=== PATIENT | male | born 1995 | race Caucasian/White ===

== ENCOUNTER 2018-07-23 03:55 | Emergency (ER) | payer SELFPAY ==
[~2018-07-23] VITALS: Ht 180.3 cm; Wt 74.8 kg
[2018-07-23 03:57] VITALS: BP 100/56
--- NOTE | 2018-07-23 03:58 | NUR ---
PT BIB [place] [employer] FOR PREBOOK DUE TO HEP C. PT STATES CRAMPING IN HAMSTRINGS WITH PAIN AT 2/10. PT ADMITS TO USING 1G IV METH USE YESTERDAY AND DRINKING 34 BEERS TODAYS. NO OTHER COMPLAINTS. AAOX4, COOPERATIVE, STEADY GAIT, SPEECH CLEAR. VSS. ER TO SEE PT. MEDHX: HEP C
--- NOTE | 2018-07-23 04:10 | NUR ---
Patient discharged with v/s stable. Written and verbal after care instructions given and explained. Patient verbalized understanding. Police with in custody. All questions addressed prior to discharge. Advised to follow up with PMD.
== END 2018-07-23 04:10 ==
LOC: MED 03:55
DX: F15.10 Other stimulant abuse, uncomplicated (principal); M79.10 Myalgia, unspecified site; Z88.8 Allergy status to other drugs, medicaments and biological substances
CPT/HCPCS: 99283

== ENCOUNTER 2019-04-06 07:10 | Inpatient (IN) | payer MEDICAID ==
--- NOTE | 2019-04-05 20:10 | NUR ---
Admitted from ED , with chief complaint of PER PT, "I FELT LIKE I'M HAVING AN ALLERGIC REACTION FROM A DRUG." PT IS 24 y/o Male, Appropriate, appears comfortable sitting on the edge of the bed. Initial assessment done. Vital signs checked. Pt denies any pain or suicidal ideation right now. Pt oriented to bed, bathroom, visiting hours, procedures, ID bracelet on. Pt's belongings was taken on the safe by Security for safety keeping. Pt refused his IVF and said "I don't want to be connected to anything, unless its a life and situation." Will notify MD. Pt denies any other needs. Addendum: 04/06/19 at 2327 by Katerina Irwin RN Correction: Notes for 04/06/2019 Addendum: 04/07/19 at 0553 by Katerina Irwin RN NOTES FOR 04/06/192009.
[~2019-04-06] VITALS: Ht 180.3 cm; Wt 72.6 kg
--- NOTE | 2019-04-06 07:10 | NUR ---
Patient BIBA BLS, transferred to bed 5. RN evaluating patient at bedside.
[2019-04-06 07:21] VITALS: BP 103/57
--- NOTE | 2019-04-06 07:26 | NUR ---
Dr. Evans is evaluating the patient at bedside.
[2019-04-06] MEDS ORDERED: LORazepam 1 MG TAB PO ONE ×2 (07:30→11:45)
[2019-04-06] MEDS ORDERED: risperiDONE 1 MG TAB PO SCH (07:30)
--- NOTE | 2019-04-06 07:47 | NUR ---
PATIENT BROUGHT TO ED BY EMS VIA GURNEY C/O SUICIDAL IDEATION. PT ADMITS TO REGULAR METH USE BUT DENIES ALCOHOL INTAKE. PT ADMITS TO DEPRESSION AND NON-COMPLIANCE TO PSYCH MEDS. DENIES N/V/D; SKIN IS PINK/WARM/DRY; AAOX4 WITH EVEN AND STEADY GAIT; PERRL 4MM; LUNGS CLEAR BL; HR EVEN AND REGULAR; PT DENIES ANY FEVER, CP, SOB, OR COUGH AT THIS TIME; PATIENT STATES PAIN OF 0/10 AT THIS TIME; VSS; PATIENT POSITIONED FOR COMFORT; HOB ELEVATED; BEDRAILS UP X2; BED DOWN. PATIENT IS ANXIOUS AND SHOWING BEHAVIOR OF PARANOIA. PT OBSERVED TO BE LOOKING AROUND THE ROOM, AND ASKING WHO CAN COME INSIDE THE ER. PT HAS ASKED TO GO TO THE RESTROOM REPEATEDLY. VERBALIZED INTENTION TO HURT SELF. ER MD SAW PATIENT. PMH: HEP C MEDS: RISPERIDONE ALLERGIES: NONE
--- NOTE | 2019-04-06 07:50 | NUR ---
CALL TO [facility] , WAS TOLD OFFICER WAS ENROUTE TO WRITE [id number].
--- NOTE | 2019-04-06 07:53 | NUR ---
SECURITY WAS CALLED TO OBSERVE PATIENT.
[2019-04-06] MEDS ORDERED: ONDANSETRON 4 MG ODT PO ONE (07:55)
[2019-04-06 08:11] LABS: APPEARANCE,URINE CLEAR (CLEAR); BILIRUBIN,URINE NEGATIVE (NEGATIVE); BLOOD, URINE NEGATIVE (NEGATIVE); COLOR,URINE ORANGE (YELLOW); LEUKOCYTE ESTERASE ,URINE NEGATIVE (NEGATIVE); NITRITE, URINE NEGATIVE (NEGATIVE); PH,URINE 7.5 (5.0-9.0); UGLUCOSE NEGATIVE (NEGATIVE)
--- NOTE | 2019-04-06 08:15 | NUR ---
PT CURRENTLY NOT ON HOLD
[2019-04-06 08:20] LABS: RBC,URINE 0-5 /HPF (0-5); WBC,URINE 0-5 /HPF (0-5)
[2019-04-06 08:21] LABS: CARBON DIOXIDE 28.6 mmol/L (21-32); CHLORIDE 103 mmol/L (98-107); CREATININE 0.8 mg/dL (0.7-1.3); GFR ARICAN-AMERICAN 151 mL/min (>90); GLUCOSE 112 mg/dL (74-106); POTASSIUM 3.6 mmol/L (3.5-5.1); SODIUM SERUM 141 mmol/L (136-145); UREA NITROGEN, BLOOD 10 mg/dL (7-18)
[2019-04-06 08:22] LABS: BASOPHILS % (AUTO) 0.4 % (0.0-2.0); EOSINOPHILS % (AUTO) 0.3 % (0.0-4.0); HEMOGLOBIN 14.5 g/dL (12.0-18.0); LYMPHOCYTES # (AUTO) 1.9 K/uL (2.0-11.5); LYMPHOCYTES % (AUTO) 24.4 % (20.5-51.1); MEAN CORPUSCULAR HEMOGLOBIN 32 pg (27-31); MEAN CORPUSCULAR HGB CONC 34 g/dL (33-37); MEAN CORPUSCULAR VOLUME 94.2 fL (80-94); MONOCYTES # (AUTO) 0.6 K/uL (0.8-1.0); MONOCYTES % (AUTO) 7.2 % (1.7-9.3); NEUTROPHILS # (AUTO) 5.2 K/uL (1.8-7.7); NEUTROPHILS % (AUTO) 67.7 % (42.2-75.2); PLATELET COUNT (AUTO) 326 K/uL (140-450); RED BLOOD CELL COUNT(AUTO) 4.57 MIL/uL (4.20-6.10); WHITE BLOOD COUNT (AUTO) 7.7 K/uL (4.8-10.8)
[2019-04-06 08:26] LABS: BARBITURATE, URINE NEG. ng/ml (NEG <=200); BENZODIAZEPINE, URINE NEG. ng/mL (NEG <=200); CANNABINOID, URINE POS. ng/mL (NEG <=50); COCAINE, URINE NEG. ng/mL (NEG <=300); OPIATE, URINE NEG. ng/mL (NEG <=2000); PHENCYCLIDINE SCREEN,URINE NEG. ng/mL (NEG <=25)
[2019-04-06 08:30] LABS: ACETAMINOPHEN < 0.5 ug/ml (10-30); ALBUMIN 4.2 g/dL (3.4-5.0); ASPARTATE AMINOTRANSFERASE 68 U/L (15-37); SALICYLATE < 2.8 mg/dL (2.8-20.0); TOTAL BILIRUBIN 0.8 mg/dL (0.0-1.0)
--- NOTE | 2019-04-06 08:52 | NUR ---
PD AT BEDSIDE SPEAKING WITH PATIENT.
--- NOTE | 2019-04-06 09:07 | NUR ---
PT PLACED ON 5150 HOLD BY OFFICER CHRISTOPHER MARTIN [facility]
--- NOTE | 2019-04-06 10:20 | NUR ---
PT IS CALM, RESTING IN BED COMFORTABLY. PT WITH 1 ON 1 SITTERAMBAR.
--- NOTE | 2019-04-06 10:47 | NUR ---
[facility] has received referral and has faxed to the following facilities for review: [facility], [facility], [facility], [facility], [place], [facility], [facility], [facility], [facility].
--- NOTE | 2019-04-06 11:32 | NUR ---
WENT OVER BELONGINGS WITH SECURITY. BELONGINGS INCLUDE: 1 PAIR SHORTS BLACK LIGHT JACKET HIGH TOP SHOES BLACK CELLPHONE BLACK EYEGLASSES (NO RX) SHAVING RAZOR SILVER POCKET KNIFE WHITE SOCKS
--- NOTE | 2019-04-06 11:34 | NUR ---
PT SITTING UP IN BED WITH 1 ON 1 SITTERCHARY
--- NOTE | 2019-04-06 13:43 | NUR ---
PT SITTING AT EDGE OF BED, DRAWING, AAOX4, BONNIE SIMS RN CURRENTLY SITTING 1-1 WITH PATIENT.
--- NOTE | 2019-04-06 13:44 | NUR ---
PT COLORING ON BEDSIDE. NOTED WITH IMPROVED AFFECT.
--- NOTE | 2019-04-06 16:01 | NUR ---
PT SITTING IN BED, COLORING, EMT TIFFANIE SITTING 1-1. PT AAOX4, COOPERATIVE, VSS, DENIES PAIN AT THIS TIME. PT UNABLE TO PROVIDE DOSAGE OF HOME MEDICATIONS.
[2019-04-06] MEDS ORDERED: NACL 0.9% 1,000 ML IV SCH (17:08)
[2019-04-06] MEDS ORDERED: HYDROcodone/APAP 7.5/325 MG 1 TAB PO PRN (17:10)
[2019-04-06] MEDS ORDERED: ACETAMINOPHEN 325 MG TAB PO PRN (17:10)
[2019-04-06] MEDS ORDERED: ONDANSETRON 4 MG/2 ML VIAL IM/IVP PRN (17:10)
[2019-04-06] MEDS ORDERED: DOCUSATE SODIUM 100 MG GELCAP PO PRN (17:10)
[2019-04-06] MEDS ORDERED: MORPHINE SULFATE 2 MG/ML SYR IVP PRN (17:10)
--- NOTE | 2019-04-06 17:23 | NUR ---
PATIENT READY FOR ADMISSION. WAITING FOR BED IN MS.
--- NOTE | 2019-04-06 18:03 | NUR ---
Patient will be admitted to care of DR TAYLOR. Admited to MS. Will go to room 109B. Belongings list completed. Report to BRUCE FRANCIS.
--- NOTE | 2019-04-06 18:11 | NUR ---
PT ARRIVED ON THE UNIT PT APPEARS STABLE AND IN NO APPARENT DISTRESS. RECEIVED REPORT FROM LAND LEASES AND RENTALS MANAGER, PT AMBULATING THROUGHOUT THE ROOM SITTER AT BEDSIDE. REVIEWED 5150 ROOM ALL SAFETY MEASURES ARE IN PLACE ORIENTED PT TO ROOM AND TO UNIT. OBTAINED MRSA NARES SWAB RECEIVED ADMISSION VITALS WILL ENDORSED ADMISSION PAPERWORK TO PM RN
[2019-04-06 19:11] LABS: PHOSPHORUS 4.5 mg/dL (2.5-4.9)
--- NOTE | 2019-04-06 19:21 | NUR ---
[facility] has received report from day shift and will continue to follow up with contracted [facility] facilities regarding bed placement.
--- NOTE | 2019-04-06 19:32 | NUR ---
ENDORSED PT TO PM RN ENDORSED ADMISSION FORMS TO PM RN . PT AWAKE IN BED ALL SAFETY MEASURES IN PLACE SITTER AT BEDSIDE. Addendum: 04/06/19 at 1935 by Sonia Mann RN IV PRIMED AND SET UP IV OUTSIDE OF PT ROOM PT 5150 FOR S.I. WILL ENDORSE PT TO MONITOR IVF AND TUBING
[2019-04-06 20:10] VITALS: BP 115/74
[2019-04-06] MEDS ORDERED: LORazepam 1 MG TAB PO PRN (20:35)
--- NOTE | 2019-04-06 22:10 | NUR ---
SEEN PT AWAKE DOING SKETCHES. SITTER AT BEDSIDE. PT DENIES ANY NEEDS.
--- NOTE | 2019-04-07 00:55 | NUR ---
SEEN PT GETTING READY FOR BED BUT WENT TO THE BATHROOM FIRST.
--- NOTE | 2019-04-07 01:04 | NUR ---
Calls were made to contracted [facility] facilities regarding bed placement, currently no beds available at this time. [facility], spoke with Jamaal. [facility], spoke with Christin. [facility], spoke with Jason. [facility], spoke with Estefania. [facility], spoke with Ania. [facility], spoke with Ginger. [facility], spoke with Elisabeth.
--- NOTE | 2019-04-07 02:35 | NUR ---
SEEN PT SLEEPING SOUNDLY IN BED. PT REMAINS ON 5150 HOLD. SITTER AT BEDSIDE.
[2019-04-07 04:50] VITALS: BP 101/64
--- NOTE | 2019-04-07 04:50 | NUR ---
SEEN PT AWAKE SITTING ON THE EDGE OF BED, DOING SKETCHES. VITAL SIGNS CHECKED. PT DENIES ANY DISCOMFORT. IV ACCESS CLEAN,DRY AND INTACT.
--- NOTE | 2019-04-07 06:20 | NUR ---
SEEN PT AWAKE WALKING AROUND HIS ROOM. SITTER AT BEDSIDE.
--- NOTE | 2019-04-07 07:08 | NUR ---
PT REPORT GIVEN TO DAYSHIFT NURSE FOR CONTINUITY OF CARE.
--- NOTE | 2019-04-07 07:09 | NUR ---
RECEIVED REPORT FROM REFUELING RAMPMAN NURSE CANDIE FOR CONTINUITY OF CARE. RESPIRATIONS EVEN AND UNLABORED, ROOM AIR. IV INTACT AND PATENT. SAFETY MEASURES IN PLACE. BED IN LOW POSITION. SITTER 1:1 AT BEDSIDE. WILL CONTINUE TO MONITOR.
[2019-04-07 08:09] LABS: HEPATITIS A ANTIBODY IGM Negative (Negative); HEPATITIS B CORE AB TOTAL Negative (Negative); HEPATITIS B SURFACE ANTIBODY Reactive (.); HEPATITIS B SURFACE ANTIGEN Negative (Negative)
--- NOTE | 2019-04-07 08:16 | NUR ---
PATIENT HAS BEEN SCREENED AND CATEGORIZED LOW NUTRITION RISK. PATIENT WILL BE SEEN WITHIN 7 DAYS OF ADMISSION. 04/13/[address]
--- NOTE | 2019-04-07 09:37 | NUR ---
GAVE ANXIETY MEDICATIONS AT THIS TIME. PT TOLERATED WELL. BED IN LOW POSITION. SITTER 1:1 AT BEDSIDE. WILL CONTINUE TO MONITOR.
[2019-04-07] MEDS ORDERED: OLANZapine 5 MG TAB PO SCH (11:00)
--- NOTE | 2019-04-07 11:33 | NUR ---
PT SITTING IN CHAIR NEXT TO DOOR IN STABLE CONDITION. 1:1 SITTER AT SIDE. WILL CONTINUE TO MONITOR.
--- NOTE | 2019-04-07 13:01 | NUR ---
PT EATING AT THIS TIME. 1:1 SITTER AT BEDSIDE. BED IN LOW POSITION. WILL CONTINUE TO MONITOR.
--- NOTE | 2019-04-07 15:44 | NUR ---
Graphics Production Specialist Note: I went to patient's room twice today to conduct assessment both times patient was sleeping, did not wake up when I called his name. Per sitter, patient has been hallucinating and has been restless. I requested sitter to please contact me once patient wakes up.
--- NOTE | 2019-04-07 15:55 | NUR ---
PT LYING IN BED SLEEP AT THIS TIME. 1:1 SITTER AT BEDSIDE. BED IN LOW POSITION. WILL CONTINUE TO MONITOR.
[2019-04-07 16:00] VITALS: BP 116/79
--- NOTE | 2019-04-07 16:10 | NUR ---
SPOKE WITH CHANCE FROM [facility] . PT IS ACCEPTED AND BED IS AVAILABLE, DR. SEXTON IS AWARE.
[2019-04-07] MEDS ORDERED: OLAN5ODT9 PO (16:33)
--- NOTE | 2019-04-07 19:23 | NUR ---
GAVE DISCHARGE INSTRUCTIONS PT VERBALIZED UNDERSTANDING. GAVE TRANSPORT INSTRUCTIONS TO TRANSPORT TEAM, ALL QUESTIONS ANSWERED AT THIS TIME. PT PLACED ON GURNEY IN STABLE CONDITION.
[2019-04-07] MEDS ORDERED: OLANZapine 5 MG ODT PO SCH (21:00)
== END 2019-04-07 19:28 | DRG 776 ==
LOC: MED 07:10 → MTU 17:11
PROVIDERS: ADMIT General Practice; ATTEND General Practice
DX: F19.99 Other psychoactive substance use, unspecified with unspecified psychoactive substance-induced disorder (principal); R65.10 Systemic inflammatory response syndrome (SIRS) of non-infectious origin without acute organ dysfunction; F12.90 Cannabis use, unspecified, uncomplicated; F15.90 Other stimulant use, unspecified, uncomplicated; F31.9 Bipolar disorder, unspecified; Z88.8 Allergy status to other drugs, medicaments and biological substances; Z86.19 Personal history of other infectious and parasitic diseases; Z83.3 Family history of diabetes mellitus
CPT/HCPCS: 36415; 71045; 80053; 80305; 81001; 82550; 83735; 84100; 84443; 85025; 86704; 86706; 86708; 86709; 86803; 87081; 87340; 93005; 99285; G0480; G0482; J7030; Q0092; Q0162

== ENCOUNTER 2019-11-02 20:52 | Emergency (ER) | payer SELFPAY ==
[~2019-11-02] VITALS: Ht 177.8 cm; Wt 68.0 kg
[~2019-11-02 20:52] MED LIST: OLAN5ODT9 PO
[2019-11-02 20:56] VITALS: BP 130/73
== END 2019-11-02 21:01 | disposition left against medical advice (07) ==
LOC: MED 20:52
DX: F15.10 Other stimulant abuse, uncomplicated (principal); Z88.8 Allergy status to other drugs, medicaments and biological substances; Z79.899 Other long term (current) drug therapy; Z53.21 Procedure and treatment not carried out due to patient leaving prior to being seen by health care provider

== ENCOUNTER 2021-07-04 17:34 | Emergency (ER) | payer OTHER ==
[~2021-07-04] VITALS: Ht 167.6 cm; Wt 60.8 kg
--- NOTE | 2021-07-04 17:38 | NUR ---
PT BIBA TAKEN TO ER BED 9.
--- NOTE | 2021-07-04 17:45 | NUR ---
26 y/o [place] [facility] c/o chest pain s/p smoking meth x 1 hour prior to arrival. Patient A&Ox4, ambulatory, states 10, pressure/intermittent, non-radiating chest pressure. EMS reports patient presented tachycardia in 170's. EMS administered 150mL NS with HR ~160's. Pt states smoking meth in the past but chest pain did not feel this bad. Reports auditory hallucinations but denies intention to harm self/others. 18G IV established to AC by EMS prior to arrival. Pt placed onto vehicle monitor technician. Bed locked in lowest position, side rails x 2. PMH/Meds: Paxil A: haldol
[2021-07-04] MEDS ORDERED: LORazepam 2 MG/ML VIAL ONE (17:49)
[2021-07-04] MEDS ORDERED: LORazepam 2 MG/ML VIAL IVP ONE ×3 (17:50→18:35)
[2021-07-04] MEDS ORDERED: NACL 0.9% 1,000 ML IV ONE ×3 (17:50→22:20)
--- NOTE | 2021-07-04 17:50 | NUR ---
Dr. Recio is evaluating patient at bedside
[2021-07-04 17:57] VITALS: BP 120/65
--- NOTE | 2021-07-04 18:10 | NUR ---
PT REMOVED IV WHILE ATTEMPTING TO URINATE. BLEEDING CONTROLLED BY 2X2 GAUZE AND TAPE APPLIED.
--- NOTE | 2021-07-04 18:30 | NUR ---
Dr. Recio at bedside advised of patient agitation; HR 166. Orders to be placed.
[2021-07-04 19:18] LABS: BASOPHILS % (AUTO) 0.5 % (0.0-2.0); EOSINOPHILS % (AUTO) 0.1 % (0.0-4.0); HEMATOCRIT 50.3 % (36-52); LYMPHOCYTES # (AUTO) 1.8 K/uL (2.0-11.5); LYMPHOCYTES % (AUTO) 17.7 % (20.5-51.1); MEAN CORPUSCULAR HEMOGLOBIN 32 pg (27-31); MEAN CORPUSCULAR HGB CONC 34 g/dL (33-37); MEAN CORPUSCULAR VOLUME 93.8 fL (80-94); MONOCYTES # (AUTO) 0.4 K/uL (0.8-1.0); MONOCYTES % (AUTO) 3.7 % (1.7-9.3); NEUTROPHILS # (AUTO) 7.7 K/uL (1.8-7.7); PLATELET COUNT (AUTO) 346 K/uL (140-450); RED BLOOD CELL COUNT(AUTO) 5.37 MIL/uL (4.20-6.10); RED CELL DISTRIBUTION WIDTH 13.4 % (11.6-13.7); WHITE BLOOD COUNT (AUTO) 9.9 K/uL (4.8-10.8)
--- NOTE | 2021-07-04 19:19 | NUR ---
PT REPORT RECEIVED FROM BRUCE CLEARY FOR CONTINUITY OF PT CARE AT THIS TIME,.
[2021-07-04] MEDS ORDERED: MIDAZOLAM 5 MG/5 ML VIAL IV ONE ×2 (19:25→21:45)
--- NOTE | 2021-07-04 19:25 | NUR ---
Report and transfer of care endorsed to BRUCE Lopez
--- NOTE | 2021-07-04 19:30 | NUR ---
PT AWAKE, AOX3, GCS 15. PT SITTING IN BED LOCKED IN LOWEST POSITION W X1 SIDERAIL UP PT CONNECTED TO MONITOR TACHYCARDIC HR FLUCTUATING IN THE 150-160s, ERMD AWARE. PT REPORTS SOME CHEST PAIN AND SOB PT ON RA W O2 SAT AT 98%, PT ALSO REPORTS PELVIC,GENITAL AREA PAIN AND ITCHING, ERMD MADE AWARE. PT DENIES ANY N/V/D, HEADACHE, OR OTHER SYMPTOMS. PT UNABLE TO PROVIDE URINE, PROVIDED W WATER. PT DENIES ANY HALLUCINATIONS AT THIS TIME.
[2021-07-04 20:04] LABS: ALBUMIN 4.1 g/dL (3.4-5.0); CARBON DIOXIDE 27.6 mmol/L (21-32); POTASSIUM 3.6 mmol/L (3.5-5.1); TOTAL BILIRUBIN 0.6 mg/dL (0.0-1.0)
--- NOTE | 2021-07-04 20:18 | NUR ---
PT GETTING OFF BED WALKING AROUND OFF MONITOR. PT REDIRECTED TO BED AND RE-PLACED ON MONITOR. PT UNABLE TO PROVIDE URINE AT THIS TIME. PROVIDED W WATER AND JUICE.
[2021-07-04] MEDS ORDERED: MIDAZOLAM 2 MG/2 ML VIAL ONE ×2 (20:38→21:54)
--- NOTE | 2021-07-04 21:18 | NUR ---
PT REQUESTED LOTION FOR HANDS. PT PROVIDED W LOTION.
--- NOTE | 2021-07-04 22:22 | NUR ---
PT DISCONNECTED SELF FROM BED AND MONITOR. RE-DIRECTED TO BED AND RE-PLACED ON MONITOR.
--- NOTE | 2021-07-04 22:36 | NUR ---
PT AMBULATED TO BATHROOM W STEADY GAIT.
--- NOTE | 2021-07-04 22:36 | NUR ---
PT HEAR RATE IMPROVED AT 110-120s, OTHERWISE VSS.
--- NOTE | 2021-07-04 23:42 | NUR ---
Hanh ovalle in [facility] - 07/05/21 at 0017 by [facility] PT AMBULATED TO BATHROOM W STEADY GAIT.
[2021-07-04 23:53] LABS: APPEARANCE,URINE CLEAR (CLEAR); BILIRUBIN,URINE NEGATIVE (NEGATIVE); BLOOD, URINE NEGATIVE (NEGATIVE); COLOR,URINE YELLOW (YELLOW); LEUKOCYTE ESTERASE ,URINE NEGATIVE (NEGATIVE); NITRITE, URINE NEGATIVE (NEGATIVE); PH,URINE 6.5 (5.0-9.0); UGLUCOSE NEGATIVE (NEGATIVE)
--- NOTE | 2021-07-05 00:16 | NUR ---
PT AWAKE GOT OFF BED AND DISCONNECTED SELF FROM MONITOR. PT REPORTS FEELING ANXIOUS UNSURE WHY. PT REQUESTING MEDICATION FOR ANXIETY. ERMD MADE AWARE.
[2021-07-05 00:28] LABS: BARBITURATE, URINE NEGATIVE ng/ml (NEG <=200); BENZODIAZEPINE, URINE POSITIVE ng/mL (NEG <=200); CANNABINOID, URINE POSITIVE ng/mL (NEG <=50); COCAINE, URINE NEGATIVE ng/mL (NEG <=300); OPIATE, URINE NEGATIVE ng/mL (NEG <=2000); PHENCYCLIDINE SCREEN,URINE NEGATIVE ng/mL (NEG <=25)
[2021-07-05] MEDS ORDERED: diphenhydrAMINE 50 MG/ML VIAL IVP ONE (00:35)
[2021-07-05] MEDS ORDERED: LORazepam 2 MG/ML VIAL IVP ONE (00:35)
--- NOTE | 2021-07-05 01:24 | NUR ---
PT DENIES ANY PAIN OR OTHER SYMPTOMS AT THIS TIME,.
--- NOTE | 2021-07-05 01:32 | NUR ---
PT OFF BED, DISCONNECTED SELF FROM MONITOR REPORTS FEELING ANXIOUS AGAIN, RE-DIRECTED TO BED, PT CONTINUES TO GET UP FEELING AGITATED. ERMD MADE AWARE.
[2021-07-05] MEDS ORDERED: ZIPRASIDONE MESYLATE 20 MG/ML VIAL IM ONE (01:35)
--- NOTE | 2021-07-05 02:31 | NUR ---
PT APPEARS TO BE RESTING W EYES CLOSED IN SUPINE POSITION. BED LOCKED IN LOWEST POSITION W HOB SLIGHTLY ELEVATED. X2 SIDERAILS UP FOR PT SAFETY. PT HR FLUCTUATING BETWEEN 96-103 OTHERWISE VSS. BREATHING EVEN AND UNLABORED. NAD NOTED, WILL CONTINUE TO MONITOR.
--- NOTE | 2021-07-05 03:13 | NUR ---
Pt report given to BRUCE JIN. Transfer of care at this time.
--- NOTE | 2021-07-05 03:13 | NUR ---
REPORT RECEIVED FROM TIM. ASSUMED CARE FOR PT.
--- NOTE | 2021-07-05 03:15 | NUR ---
PT APPEARS TO BE RESTING. OPENS EYES TO TOUCH. EQUAL RISE AND FALL OF CHEST WALL. UNLABORED BREATHING. VSS. PT IS IN STABLE CONDITION. HR LOWERED TO 90'S. ALL NEEDS MET AT THIS TIME. BED LOCKED IN LOWEST POSITION, SIDE RAILS X2 FOR SAFETY. PT ON PRODUCTION ASSISTANT.
--- NOTE | 2021-07-05 03:42 | NUR ---
PT AMBULATED TO AND BACK TO BED.
--- NOTE | 2021-07-05 04:44 | NUR ---
PT APPEARS TO BE RESTING. OPENS EYES TO TOUCH. EQUAL RISE AND FALL OF CHEST WALL. UNLABORED BREATHING. VSS. PT IS IN STABLE CONDITION. HR LOWERED TO 90'S. ALL NEEDS MET AT THIS TIME. BED LOCKED IN LOWEST POSITION, SIDE RAILS X2 FOR SAFETY. PT ON JUNIOR WEB DESIGNER.
--- NOTE | 2021-07-05 05:40 | NUR ---
PT IS A&O X4 WITH STEADY AMBULATORY. PT PROVIDED WITH FOOD AND HOMELESS PACKET. PT STATES HE IS READY TO GO. VSS. HR @88. PT IS IN STABLE CONDITION.
[2021-07-05 05:45] VITALS: BP 110/79
--- NOTE | 2021-07-05 05:45 | NUR ---
Patient discharged with v/s stable. Written and verbal after care instructions given and explained. Patient verbalized understanding. Ambulatory with steady gait. All questions addressed prior to discharge. Advised to follow up with PMD.
== END 2021-07-05 05:45 | disposition home or self-care (01) ==
LOC: MED 17:34
DX: F15.129 Other stimulant abuse with intoxication, unspecified (principal); F19.10 Other psychoactive substance abuse, uncomplicated; R41.0 Disorientation, unspecified; Z88.5 Allergy status to narcotic agent; Z88.8 Allergy status to other drugs, medicaments and biological substances; Z79.899 Other long term (current) drug therapy
CPT/HCPCS: 36415; 80053; 80305; 81003; 82550; 84484; 85025; 93005; 96361; 96372; 96374; 96375; 96376; 99285; J1200; J2060; J2250; J3486; J7030

== ENCOUNTER 2021-07-05 08:33 | Emergency (ER) | payer OTHER ==
[~2021-07-05] VITALS: Ht 167.6 cm; Wt 60.8 kg
--- NOTE | 2021-07-05 08:38 | NUR ---
pt amb to er bed 2
--- NOTE | 2021-07-05 08:40 | NUR ---
PATIENT PRESENTS TO ED WITH CHEST TIGHTNESS . PT STATES STARTED TODAY . DENIES N/V/D; SKIN IS PINK/WARM/DRY; AAOX4 WITH EVEN AND STEADY GAIT; LUNGS CLEAR BL; HR EVEN AND REGULAR; PT DENIES ANY FEVER, CP, SOB, OR COUGH AT THIS TIME; PATIENT STATES PAIN OF 0/10 AT THIS TIME; VSS; PATIENT POSITIONED FOR COMFORT; HOB ELEVATED; BEDRAILS UP X2; BED DOWN. ER MD MADE AWARE OF PT STATUS.
[2021-07-05 08:43] VITALS: BP 144/86
[2021-07-05] MEDS ORDERED: LORazepam 0.5 MG TAB PO ONE (09:05)
== END 2021-07-05 09:26 | disposition home or self-care (01) ==
LOC: MED 08:33
DX: R07.89 Other chest pain (principal); F15.10 Other stimulant abuse, uncomplicated; M54.9 Dorsalgia, unspecified; R51.9 Headache, unspecified; Z88.8 Allergy status to other drugs, medicaments and biological substances
CPT/HCPCS: 93005; 99283